=== PATIENT | female | born 1985 | race Two or more races ===

== ENCOUNTER 2022-11-10 09:28 | Emergency (ER) | payer SELFPAY ==
[2022-11-10 09:44] VITALS: BP 118/73
[2022-11-10] MEDS ORDERED: FLUCONAZOLE 100 MG TABLET PO STA (11:37)
--- NOTE | 2022-11-10 11:38 | ED Physician Documentation ---
History of Present Illness - Stated complaint Stated Complaint: CHILLS,FEMALE - Chief complaint Chief Complaint: General - History obtained from History obtained from: Patient - History of Present Illness Timing: How many weeks ago (1) Pain level max: 0 Pain level now: 0 - Additonal information Additional information: Patient is a 37-year-old female who presents to the emergency department stating that for the past 1 week she has had vaginal itching. She states that she is unsure if she has had discharge or not as she is applying Monistat regularly. Denies any urinary symptoms. No vaginal bleeding. Denies any STD exposure. Nothing makes it better or worse. No fevers. Review of Systems Constitutional: denies: Fever Nose: denies: Rhinorrhea / runny nose, Congestion Respiratory: denies: Cough GI: denies: Vomiting, Diarrhea : denies: Now EGA Skin: denies: Rash PD PAST MEDICAL HISTORY - Past Medical History Past Medical History: No - Present Medications Home Medications: Ambulatory Orders Medication Instructions Recorded Confirmed Fluconazole 150 mg PO DAILY #7 tablet 11/10/22 - Allergies Allergies/Adverse Reactions: Allergies Allergy/AdvReac Type Severity Reaction Status Date / Time No Known Drug Allergies Allergy Verified 11/10/22 09:44 - Social History Does the pt smoke?: No Smoking Status: Never smoker PD ED PE NORMAL - Vitals Vital signs reviewed: Yes - General General: Alert and oriented X 3, No acute distress - HEENT HEENT: Moist mucous membranes - Neck Neck: Supple, no meningeal sign - Cardiac Cardiac: RRR - Respiratory Respiratory: No respiratory distress, Clear bilaterally - Abdomen Abdomen: Soft, Non tender, Non distended - Female Female : Pt declined - Derm Derm: Warm and dry, No rash - Neuro Neuro: Alert and oriented X 3 Results - Vitals Vitals: Vital Signs - 24 hr 11/10/22 09:40 Temperature 36.3 C L Heart Rate 96 Respiratory 16 Rate Blood Pressure 118/73 O2 Saturation 100 Oxygen O2 Source Room air - Labs Labs: Laboratory Tests 11/10/22 11:30 C. glabrata (PCR) NEGATIVE C. krusei (PCR) NEGATIVE Ml species DNA POSITIVE A T. vaginalis (PCR) NEGATIVE Bact Vaginosis (PCR) NEGATIVE PD Medical Decision Making - ED course Complexity details: reviewed results, considered differential, d/w patient ED course: 37-year-old female with vaginal itching for the past 1 week. She declines a pelvic exam but will do self swab. Was given a dose of Diflucan presumptively. We will await results of the swab and call the patient with the results. This document was made in part using voice recognition software. While efforts are made to proofread this document, sound alike and grammatical errors may occur. Patient is positive for candidal vaginitis. She was treated with Diflucan here originally. Patient called to inform of results. Patient states that because of the recurrent infections, she is usually placed on fluconazole daily x7 days. Departure - Departure Disposition: Home, Self Care Clinical Impression: Yeast infection Condition: Good Instructions: ED Vaginal Infec Fungal Ml Follow-Up: your,doctor in 1 week [Other] Prescriptions: Fluconazole 150 mg PO DAILY #7 tablet Comments: We have treated you with Diflucan today. The remainder of your testing will be back later this afternoon and I will call you with the results. Please return if you worsen. Discharge Date/Time: 11/10/22 11:56
[2022-11-10 13:42] LABS: BACTERIAL VAGINOSIS DNA NEGATIVE (NEGATIVE); CANDIDA GLABRATA DNA NEGATIVE (NEGATIVE); CANDIDA GROUP DNA POSITIVE (NEGATIVE); CANDIDA KRUSEI DNA NEGATIVE (NEGATIVE); TRICHOMONAS VAGINALIS DNA NEGATIVE (NEGATIVE)
[2022-11-10 23:14] LABS: CHLAMYDIA TRACHOMATIS DNA NEGATIVE (NEGATIVE); NEISSERIA GONORRHOEAE DNA NEGATIVE (NEGATIVE)
== END 2022-11-10 11:56 | disposition home or self-care (01) ==
LOC: ED 09:28
DX: B37.31 Acute candidiasis of vulva and vagina (principal)
CPT/HCPCS: 81514; 87491; 87591; 99283; 99284; A9270; 87661